=== PATIENT | male | born 1940 | race Caucasian/White ===

== ENCOUNTER → 2018-01-26 10:42 | Outpatient (CLI) | payer MEDICARE, SELFPAY ==
[2017-12-29 14:24] VITALS: BP 143/68; PULSE 77; RESP 18; TEMP 37.4; O2SAT 97; BMI 29.9
--- NOTE | 2017-12-29 14:53 | SDCEKG_ITS ---
Test Reason : Blood Pressure : / mmHG Vent. Rate : 068 BPM Atrial Rate : 068 BPM P-R Int : 196 ms QRS Dur : 076 ms QT Int : 416 ms P-R-T Axes : 044 -06 054 degrees QTc Int : 442 ms Normal sinus rhythm Low voltage QRS (Limb Leads) Confirmed by SEDA MORRIS, BRIAN ([id number]), market editor DARWIN THOMAS ([id number]) on 01/04/2018 2:26:39 PM Referred By: Collin Lemus Confirmed By:BRIAN STACK MD
[2017-12-29 15:19] LABS: Hematocrit 35.3 % (40-54); Hemoglobin 11.7 g/dl (13.0-16.5); Mean Corp Hgb Conc 33.1 g/gl (32-36); Mean Corpuscular Hgb 28.3 pg (27.0-32.0); Mean Corpuscular Volume 85.3 fL (80-94); Mean Platelet Vol. 8.5 fl (6.2-12.0); Platelet Count 353 K/mm3 (150-450); RBC Distribution Width CV 15.5 % (11.6-14.6); RBC Distribution Width SD 47.2 fl (35.1-43.9); Red Blood Count 4.14 M/mm3 (4.6-6.2); Scan Indicated on CBC? Y/N NO; White Blood Count 6.2 K/mm3 (4.4-11.0)
[2017-12-29 15:32] LABS: Prothrombin Time (Protime)PT. 13.1 SECONDS (11.7-14.9)
[2017-12-29 15:33] LABS: Partial Thromboplast Time 28.2 Seconds (24.1-36.2)
[2017-12-29 15:48] LABS: Hemoglobin A1c 7.6 % (4.2-6.3)
[2017-12-29 16:04] LABS: BUN 21 mg/dL (7-18); Creatinine, Serum 1.31 mg/dL (0.70-1.30); Glucose 128 mg/dL (70-110)
[2017-12-29 16:05] LABS: AST(SGOT) 15 U/L (15-37); Alanine Aminotransfer ALT/SGPT 17 U/L (16-61); Albumin, Serum 3.7 g/dL (3.2-5.0); Alkaline Phosphatase 82 U/L (45-117); Anion Gap 9 (5-15); Bilirubin, Direct 0.11 mg/dL (0.00-0.30); Calcium,Total 8.8 mg/dL (8.5-10.1); Chloride 108 mmol/L (98-107); EST Glomerular Filtration Rate 56 mL/min (>60); Est Glom Filt Rate - Afr Amer 68 mL/min (>60); Globulin 3.6 g/dL (2.2-4.2); Potassium 3.8 mmol/L (3.5-5.1); Protein, Total 7.3 g/dL (6.4-8.2); Sodium Level 143 mmol/L (136-145)
== END ==
PROVIDERS: Anesthesiology; Family Provider Internal Medicine; PCP Internal Medicine; Visit Provider Urology
DX: Z01.812 Encounter for preprocedural laboratory examination (principal); Z01.810 Encounter for preprocedural cardiovascular examination; Z79.82 Long term (current) use of aspirin; Z79.899 Other long term (current) drug therapy; Z53.9 Procedure and treatment not carried out, unspecified reason
CPT/HCPCS: 80048; 80076; 83036; 85027; 85610; 85730

== ENCOUNTER 2018-02-03 07:13 | Day surgery (SDC) | payer MEDICARE, SELFPAY ==
[2018-02-03] VITALS (10 sets, daily range): BP systolic 92–144; BP diastolic 46–68; PULSE 50–81; RESP 15–18; TEMP 35.9–37; O2SAT 89–98; BMI 29.8
--- NOTE | 2018-02-03 | PROS_PTH ---
PATIENT: BETINA DIAZ LOC: [facility] [place] U#:[id number] AGE/SX: 77/M ROOM: RE02/03/[address]: Dr. Collin Lemus MD : [id number] BED: DIS: 02/04/2018 SPEC #: [id number] RECD: 02/03/18 14:32 STATUS: WALKER NICANOR #: [id number] ARTEMIO: 02/03/18 00:[address]: Collin Lemus DEPT: SURGICAL PATHOLOGY RECD BY: Gil Juarez ENTERED: 02/03/18 14:32 SP TYPE: TURP OTHR DR: Dr. Jovan Oleary MD Tissues: Prostate, NOS Procedures: Surgery Specimen Level IV HEADER OPERATION: Cysto, TUR, prostate, Olympus PRE-OP DIAGNOSIS: BPH with obstruction, gross hematuria, frequency of urination, incomplete bladder emptying TISSUE SUBMITTED: Prostate MICROSCOPIC DIAGNOSIS Prostate chips, TUR: Benign prostatic hyperplasia, glandular and stromal type. Focal chronic inflammation and basal cell hyperplasia. PAUL:august 02/06/18 MICROSCOPIC DESCRIPTION Slides are reviewed. GROSS DESCRIPTION Received is one container labeled with the patient's name and designated prostate chips. The specimen consists of multiple irregular fragments of pink-askew, rubbery, soft tissue that in aggregate weigh 55.6 gm and measure in aggregate 8.5 x 8.5 x 2.2 cm. Legal Archivist portions are submitted in 12 cassettes. / PAUL:august 02/03/18 TC:5 CPT: 04426
[2018-02-03 08:26] LABS: Bedside Glucose 153 mg/dL (70-110)
[2018-02-03] MEDS: Cefazolin 2 GM in 0.9% Normal Saline 100 ML IV (09:13)
[2018-02-03] MEDS: Lubricating Jelly 60 GM Tube 30 GM TOPICAL (09:23)
--- NOTE | 2018-02-03 10:54 | OP.PCM_ITS ---
Problem List (1) BPH with urinary obstruction Status: Acute Report of Operation Date of Procedure: 02/03/18 Pre-Operative Diagnosis: BPH with urinary obstruction Post-Operative Diagnosis: The same Surgery/Procedure Performed:: Transurethral resection of the prostate Description of Surgical Findings:: 77-year-old male with a very large prostate large obstructive tissue anterior and laterally. Has significant voiding symptoms symptoms difficulty going to the bathroom difficulty emptying the bladder and. Today we will perform a transurethral resection of the prostate. Patient was taken back to the operating room after smooth induction of general anesthesia was placed in dorsal lithotomy position went into the bladder with a 26 [place] continuous flow resectoscope Olympus bipolar system. The entire length of the urethra is normal the pendulous urethra is normal bulbar urethra is normal sphincter was normal no strictures or abnormalities along the entire channel inside the prostate had obstructive tissue bilaterally and had a very large growth into the bladder coming anteriorly. I then started by resecting his anterior tissue very difficult to reach because the location but after resecting the anterior obstructing tissue then resected the right lateral tissue and then resected the left lateral tissue and then came back down to the sphincter resected more tissue there finally I switched over to the button to reduce and smooth out the resection I resected the apical tissue very carefully resected in the flapping tissue at the apex to make sure there is no obstruction and the resected and smooth out the resection on both the right side and the left side of the prostate. Surgically quite quite a long time because a large prostate after an hour to have a resection had a nice open channel and obtain good hemostasis all the chips were removed and a very large amount of tissue removed. Obtained good hemostasis but a 22 [place] catheter into the bladder put on continuous bladder irrigation and the patient's anesthetic is currently being reversed and the urine is nice and clear. Type of Anesthesia:: General Drains: 22fr 3 way - Admit VTE Documentation VTE Present on Admission: No VTE Mechan Device Prophylaxis: SCD's VTE Pharm Prophylaxis ordered?: No Reason prophylaxis not ordered:: Treatment Not Indicated
[2018-02-03 11:40] LABS: Bedside Glucose 177 mg/dL (70-110)
[2018-02-03] MEDS: 0.9% Normal Saline 1,000 ML 75 ML IV ×2 (11:50→21:37)
[2018-02-03] MEDS: Pantoprazole Sodium 40 MG Tablet PO (14:40)
[2018-02-03] MEDS: Docusate Sodium 100 MG Capsule PO ×2 (14:40→21:37)
[2018-02-04 02:33] VITALS: BP 109/50; PULSE 73; RESP 16; TEMP 37.1; O2SAT 96
[2018-02-04 09:45] VITALS: BP 100/52; PULSE 59; RESP 18; TEMP 36.5; O2SAT 100
[2018-02-04] MEDS: 0.9% Normal Saline 1,000 ML 75 ML IV (09:49)
[2018-02-04] MEDS: Docusate Sodium 100 MG Capsule PO (09:56)
[2018-02-04] MEDS: Pantoprazole Sodium 40 MG Tablet PO (09:56)
--- NOTE | 2018-02-04 11:27 | PCM.DC.URO ---
Discharge Diet: Light diet - advance as tolerated Discharge Activity: Return to Normal Activity, No Restrictions May shower in (days): 1 Lifting Restrictions: no lifting > 10 lbs for 4 weeks. Call your doctor if your incision/area has: Continuous Slow Oozing, Sudden Increased Bleeding, Increased Pain/ Swelling, Increased Redness, Foul Smelling Discharge, Swelling at the incision site Call your doctor if you observe: Fever of 101 or Higher, Uncontrolled pain Suture Line Care: Avoid Pulling/Pushing, Avoid Pinching/Bending Allergies/Adverse Reactions: Allergies No Known Allergies Allergy (Verified 12/29/17 14:12) Medications to take at Discharge Enalapril Maleate [Vasotec] 20 mg PO BID 12/29/17 Hydrochlorothiazide [Hctz] 25 mg PO DAILY 12/29/17 Metformin HCl [Glucophage] 1,000 mg PO BIDCM 12/29/17 Metformin HCl [Glucophage] 500 mg PO LUNCH 12/29/17 Repaglinide 1 mg PO DINNER 12/29/17 Repaglinide [Prandin] 2 mg PO DAILY 12/29/17 Rosuvastatin Calcium [Crestor] 20 mg PO QHS 12/29/17 Ciprofloxacin [Cipro] 500 mg PO BID #14 tab 02/04/18 The following prescriptions were given: Ciprofloxacin [Cipro] 500 mg PO BID #14 tab Primary Care Physician: Jovan Oleary [Primary Care Provider] - Please Follow Up With: Collin Lemus MD When: February 16 at 8:30 am
== END 2018-02-04 13:03 | disposition home or self-care (01) ==
LOC: SDC 07:13 → AC 07:14 → MS3 09:30
PROVIDERS: Family Provider Internal Medicine; PCP Internal Medicine; Visit Provider Urology
PROC: (CPT 52630; principal; 2018-02-03 09:00)
DX: N40.1 Benign prostatic hyperplasia with lower urinary tract symptoms (principal); N13.8 Other obstructive and reflux uropathy; R31.0 Gross hematuria; R35.0 Frequency of micturition; R39.14 Feeling of incomplete bladder emptying; I10 Essential (primary) hypertension; E11.9 Type 2 diabetes mellitus without complications; Z72.0 Tobacco use; E78.00 Pure hypercholesterolemia, unspecified; Z23 Encounter for immunization
CPT/HCPCS: 52630; 82962; 88305; G0008; J3010; J7030; J7120; 90686; J2405